=== PATIENT | male | born 1945 | race Caucasian/White ===

== ENCOUNTER 2019-03-08 14:12 | Inpatient (IN) | payer OTHER ==
[~2019-03-08] VITALS: Ht 188 cm; Wt 66.8 kg
[~2019-03-08 14:12] MED LIST: HYDACE5 PO
[2019-03-08] MEDS ORDERED: AMLO5 PO (14:20)
[2019-03-08] MEDS ORDERED: ATOR10 PO (14:20)
[2019-03-08] MEDS ORDERED: STRIVERDI RESPIM4 GM IH (14:21)
[2019-03-08] MEDS ORDERED: ALBU90OI INH (14:22)
[2019-03-08 14:53] LABS: BASOPHILS PERCENT AUTO 1 % (0-2); EOSINOPHILS ABSOLUTE AUTO 0.21 K/mm3 (0.00-0.68); EOSINOPHILS PERCENT AUTO 3 % (0-6); Hematocrit 46.1 % (37.0-53.0); Hemoglobin 15.7 g/dL (13.5-17.5); IMMATURE GRAN ABSOLUTE AUTO 0.02 K/mm3 (0.00-0.10); IMMATURE GRAN PERCENT AUTO 0 % (0-1); LYMPHOCYTES ABSOLUTE AUTO 1.24 K/mm3 (0.84-5.20); LYMPHOCYTES PERCENT AUTO 15 % (21-46); MONOCYTES ABSOLUTE AUTO 0.71 K/mm3 (0.16-1.47); MONOCYTES PERCENT AUTO 9 % (4-13); Mean Corpuscular HGB Conc 34.1 g/dL (31.5-36.5); Mean Corpuscular Volume 91 fL (80-100); Mean Platelet Volume 10.3 fL (9.1-12.4); NEUTROPHILS ABSOLUTE AUTO 5.85 K/mm3 (1.96-9.15); NEUTROPHILS PERCENT AUTO 72 % (41-73); Platelet Count 276 K/mm3 (150-400); RDW Coefficient Variation 12.7 % (11.7-14.2); RDW Standard Deviation 42.5 fL (35.1-46.3); Red Blood Cell Count 5.07 M/mm3 (4.30-5.90); White Blood Cell Count 8.13 K/mm3 (4.00-11.30)
[2019-03-08 15:14] LABS: Alanine Aminotransfer (ALT/SGP 15 U/L (12-78); Albumin/Globulin Ratio 1.2 (0.8-1.8); Alk Phos 73 U/L (50-136); Anion Gap 4 mmol/L (6-16); Aspartate Aminotrans (AST/SGOT 17 U/L (12-37); Bilirubin, Total 0.5 mg/dL (0.1-1.0); Blood Urea Nitrogen 19 mg/dL (8-24); Bun/Creatinine Ratio 13.9 (12.0-20.0); CO2, Blood 31 mmol/L (21-32); Calcium, Blood 9.1 mg/dL (8.5-10.1); Chloride, Blood 105 mmol/L (98-108); Creatinine, Blood 1.37 mg/dL (0.60-1.20); Globulin, Blood 3.4 g/dL (2.2-4.0); Glomerular Filtration Rate 54 (60-); Glucose, Blood 90 mg/dL (70-99); Potassium, Blood 4.7 mmol/L (3.5-5.5); Sodium, Blood 140 mmol/L (136-145); Total Protein, Blood 7.4 g/dL (6.4-8.2); Troponin I <0.015 ng/mL (0.000-0.040)
[2019-03-08 16:56] LABS: PCO2 Arterial 40.2 mmHg (35-45); PO2 Arterial 79.5 mmHg (80-100); pH Blood Arterial 7.42 (7.35-7.45)
--- NOTE | 2019-03-08 17:40 | NUR ---
ASSUMED CARE: PT ARRIVES WITH HYPERTENSION, HR IN LOW 100S, SINUS TACH. DENIES CP BUT STATES HE WAS FEELING DIZZY AFTER BLOOD PRESSURE CHANGED FROM 140S SYSTOLIC TO 170S SYSTOLIC UPON ADMIT. DENIES FURTHER NEEDS OR CONCERNS
--- NOTE | 2019-03-08 19:10 | NUR ---
ASSUME CARE REPORT RECIEVED FROM OFF GOING RN NADIR. MONITOR INTACT SHOWING SINUS RHYTHM/SINUS TACH HEART RATE 80'-100'S DENIES NAUSEA OR DISCOMFORT. LUNG SOUNDS CLEAR RESPIRATIONS REGULAR AND EASY AT REST ABDOMEN SOFT WITH BOWEL SOUNDS FOUR QUADS. VOIDS PEDRO URINE PER URINAL. DENIES DIZZINESS OR UNSTEADYNESS WHEN STANDING. REQUEST "SOMETHING TO EAT" TOLERATES SANDWITH AND ORANGE JUICE WELL. CONTINUE TO MONITOR AND REPORT CHANGE IN PATIENT CONDITION.
--- NOTE | 2019-03-08 19:44 | NUR ---
SHIFT SUMMARY: CALL TO DR OLGUIN DUE TO PT STATING HE DOES NOT HAVE HOME INHALER AVAILABLE BECAUSE HE RAN OUT TWO DAYS AGO. DR ALSO AWARE THAT PT HAS PTSD HISTORY WITH INSOMNIA AND REQUESTING BEDTIME MEDS. REQUESTED FOOD, WHICH RECTANGULAR TANK COOPER PROVIDED. DENIES FURTHER NEEDS OR CONCERNS.
--- NOTE | 2019-03-08 21:00 | NUR ---
REFUSES COLACE REQUEST SLEEPING AID MELITONIN MEDICATED WITH SAME. CONTINUE TO MONITOR
--- NOTE | 2019-03-09 00:36 | NUR ---
AWAKENS EASILY C/O HEADACHE MEDICATED WI TYLENOL 650MG WILL CONTINUE TO MONITOR AND REPORT CHANGE IN PATIENT CONITION
[2019-03-09 02:07] LABS: BASOPHILS ABSOLUTE AUTO 0.01 K/mm3 (0.00-0.23); BASOPHILS PERCENT AUTO 0 % (0-2); EOSINOPHILS ABSOLUTE AUTO 0.01 K/mm3 (0.00-0.68); EOSINOPHILS PERCENT AUTO 0 % (0-6); Hematocrit 43.4 % (37.0-53.0); Hemoglobin 14.8 g/dL (13.5-17.5); IMMATURE GRAN ABSOLUTE AUTO 0.02 K/mm3 (0.00-0.10); IMMATURE GRAN PERCENT AUTO 0 % (0-1); LYMPHOCYTES ABSOLUTE AUTO 0.36 K/mm3 (0.84-5.20); LYMPHOCYTES PERCENT AUTO 7 % (21-46); MONOCYTES ABSOLUTE AUTO 0.04 K/mm3 (0.16-1.47); MONOCYTES PERCENT AUTO 1 % (4-13); Mean Corpuscular HGB 29.8 pg (26.0-34.0); Mean Corpuscular HGB Conc 34.1 g/dL (31.5-36.5); Mean Platelet Volume 10.3 fL (9.1-12.4); NEUTROPHILS PERCENT AUTO 92 % (41-73); Platelet Count 245 K/mm3 (150-400); RDW Coefficient Variation 12.9 % (11.7-14.2); RDW Standard Deviation 41.2 fL (35.1-46.3); Red Blood Cell Count 4.96 M/mm3 (4.30-5.90); White Blood Cell Count 5.54 K/mm3 (4.00-11.30)
[2019-03-09 02:08] LABS: Mean Corpuscular Volume 88 fL (80-100)
[2019-03-09 02:24] LABS: Bun/Creatinine Ratio 18.7 (12.0-20.0); Calcium, Blood 8.9 mg/dL (8.5-10.1); Creatinine, Blood 1.39 mg/dL (0.60-1.20); Potassium, Blood 4.3 mmol/L (3.5-5.5)
--- NOTE | 2019-03-09 06:36 | NUR ---
SHIFT SUMMARY: RESTS QUIETLY WHEN UNDISTURBED AWAKENS EASILY. DENIES DISCOMFORT. LUNG SOUNDS CLEAR UPPERS DECREASED IN THE BASES. RESPIRATIONS REGULAR AND EASY AT REST. DYSPNIC WITH EXERTION. ABDOMEN SOFT WITH AUDIBLE BOWEL SONDS FOUR QUADS. VOIDS PEDRO URINE PER URINAL. PEDAL PULSES PRESENT NO EDEMA NOTED. CONTINUE TO MONITOR AND REPORT CHANGE IN PATIENT CONDITION
--- NOTE | 2019-03-09 08:40 | NUR ---
ASSESSMENT- PT AWAKE, ALERT, COOPERATVE. DENIES ANY PAIN OR DISCOMFORT, BP ELEVAATED-STATES NORMAL FOR HIM. NORVASC GIVEN. BEDSIDE ECHO BEING SET UP. ATE BREAKFAST, VSS. 2 PIV INTACT
--- NOTE | 2019-03-09 10:38 | NUR ---
BP REMAINS ELEVATED, RX WITH HYDRALAZINE. PT DENIES CHEST PAIN, STATES HAS SLIGHT HEADACHE. REFUSES TYLENOL
--- NOTE | 2019-03-09 11:16 | NUR ---
BP IMPROVED 150/68, STATES HEADACHE RESOLVED. DENIES PAIN OR SOB
--- NOTE | 2019-03-09 11:32 | NUR ---
DR OLGUIN AT BEDSIDE, PT DENIES CHEST PAIN BUT STATES DOES HAVE "CONGESTION" SENSATION, STATES NOT REALLY "PAIN" EKG DONE. NTG SL GIVEN WITH RELIEF OF CONGESTION FEELING. PT TALKATIVE, NO DISTRESS NOTED
--- NOTE | 2019-03-09 11:56 | NUR ---
Echocardiogram completed.
--- NOTE | 2019-03-09 14:13 | NUR ---
PT IN BED, ONLY HAD BITE FOR LUNCH. VISITING WITH FRIEND. DR. RED HERE-ASSESSED PT, PLANS FOR STAT DDIMER, POSSIBLE CATH
[2019-03-09 15:21] LABS: D-Dimer, Quantitative 0.39 mg/L FEU (0.00-0.52); International Normalized Ratio 1.02; Prothrombin Time Results 10.8 Sec (9.7-11.5)
--- NOTE | 2019-03-09 15:55 | NUR ---
PT DENIES COMPLAINTS. HEPARIN GTT STARTED 13 UNITS/KG/HR AND BOLUS GIVEN PER ORDERS. VSS
[2019-03-09 16:22] LABS: Free Thyroxine 0.96 ng/dL (0.70-1.60)
[2019-03-09 16:23] LABS: Triiodothyronine, Free 1.85 pg/mL (2.18-3.98)
--- NOTE | 2019-03-09 17:33 | NUR ---
DENIES ANY PAIN, HEPARIN INFUSING, NS AT 125 CC/HR. VSS. SR RATE 80'S. 2 PIV DI. DISCUSSED PLAN OF CARE, CARDIAC CATH, QUESTIONS ANSWERED.
--- NOTE | 2019-03-09 17:55 | NUR ---
REPORT TO [facility] SULFITE STAFF. PT TO LAB IN BED WITH MONITOR
--- NOTE | 2019-03-09 18:10 | NUR ---
Per admit trigger, I met with Mr. Morales to offer information on benefits of advanced care planning. He was not interested but politely took packet. Sister at bedside. They appear to have strong relationship. Advised I would remain available.
--- NOTE | 2019-03-09 20:00 | NUR ---
PT ARRIVES TO ICU 2 FROM VAN OWNER OPERATOR S/P ANGIOGRAM. ACCESS WAS TO RIGHT RADIAL. PT LEFT HAND DOMINENT. TR BAND ON AND INFLATED TO 12 ML. GOOD CMS CHECKS TO RIGHT HAND. REPORT RECEIVED FROM [facility]AN OWNER OPERATOR RN. PT ANXIOUS AND SOMEWHAT RESTLESS IN BED. NEEDS TO BE REMINDED OF RESTRICTIONS POST PROCEDURE. PT VERBALIZES UNDERSTANDING. WILL REVIEW CHART AND PLAN OF CARE FOR THIS PT.
--- NOTE | 2019-03-09 23:41 | NUR ---
DR RED CALLS AND UPDATE ON PT'S STATUS GIVEN. NEW ORDERS RECEIVED. HAVE NEARLY COMPLETED DEFLATION OF TR BAND. HAVE INSTRUCTED PT IN PROCESS. PT COMPLIANT WITH RESTRICTIONS AT THIS TIME. NO COMPLAINTS OF CHEST PAIN OR PRESSURE. WILL CONTINUE TO MONITOR PT.
--- NOTE | 2019-03-10 01:14 | NUR ---
PT'S TR BAND DEFLATED. NO S/S BLEEDING. NO HEMATOMA OR OOZING. PT COMPLIANT WITH RIGHT WRIST RESTRICTIONS. NO COMPLAINTS OF CHEST PAIN OR PRESSURE. WILL CONTINUE TO MONITOR PT
[2019-03-10 04:04] LABS: BASOPHILS ABSOLUTE AUTO 0.02 K/mm3 (0.00-0.23); BASOPHILS PERCENT AUTO 0 % (0-2); EOSINOPHILS ABSOLUTE AUTO 0.02 K/mm3 (0.00-0.68); EOSINOPHILS PERCENT AUTO 0 % (0-6); Hematocrit 42.6 % (37.0-53.0); Hemoglobin 14.4 g/dL (13.5-17.5); IMMATURE GRAN ABSOLUTE AUTO 0.09 K/mm3 (0.00-0.10); IMMATURE GRAN PERCENT AUTO 1 % (0-1); LYMPHOCYTES ABSOLUTE AUTO 0.58 K/mm3 (0.84-5.20); LYMPHOCYTES PERCENT AUTO 3 % (21-46); MONOCYTES ABSOLUTE AUTO 0.37 K/mm3 (0.16-1.47); MONOCYTES PERCENT AUTO 2 % (4-13); Mean Corpuscular HGB 30.3 pg (26.0-34.0); Mean Corpuscular HGB Conc 33.8 g/dL (31.5-36.5); Mean Corpuscular Volume 90 fL (80-100); Mean Platelet Volume 10.5 fL (9.1-12.4); NEUTROPHILS ABSOLUTE AUTO 18.79 K/mm3 (1.96-9.15); NEUTROPHILS PERCENT AUTO 95 % (41-73); Platelet Count 279 K/mm3 (150-400); RDW Coefficient Variation 13.2 % (11.7-14.2); RDW Standard Deviation 43.8 fL (35.1-46.3); Red Blood Cell Count 4.76 M/mm3 (4.30-5.90); White Blood Cell Count 19.87 K/mm3 (4.00-11.30)
[2019-03-10 04:22] LABS: Anion Gap 7 mmol/L (6-16); Blood Urea Nitrogen 31 mg/dL (8-24); Bun/Creatinine Ratio 24.4 (12.0-20.0); CHOL/HDL RATIO 2.3; CO2, Blood 26 mmol/L (21-32); Calcium, Blood 8.7 mg/dL (8.5-10.1); Chloride, Blood 107 mmol/L (98-108); Cholesterol 110 mg/dL (50-200); Creatinine, Blood 1.27 mg/dL (0.60-1.20); Glomerular Filtration Rate 59 (60-); Glucose, Blood 143 mg/dL (70-99); HDL Cholesterol 47 mg/dL (>39); LDL/HDL RATIO 0.9; Low Density Lipoprotein Chol 44 mg/dL (0-110); Potassium, Blood 4.6 mmol/L (3.5-5.5); Sodium, Blood 140 mmol/L (136-145); Triglycerides 95 mg/dL (30-160); Very Low Density Lipoprot Chol 19 mg/dL (6-32)
--- NOTE | 2019-03-10 06:31 | NUR ---
PT HAS HAD NO COMPLAINTS OF CHEST PAIN OR PRESSURE. NO COMPLAINTS OF DYSPNEA THROUGHT THE NIGHT. TR BAND OFF, ARMBOARD IS ON. PT DOES HAVE ONE EPISODE DURING NIGHT WHEREAS HE GOT HIMSELF OUT OF BED WITHOUT ASSIST. WHEN FOUND, PT HAD HIS CORDS TANGLED, AND HE WAS TRYING TO WALK AROUND BED WITHOUT REGARDS TO THE IV LINES. WHEN ADDRESSED BY ANOTHER RN, PT BECOMES ANGRY, AND VERY DEFENSIVE. CHARGE NURSE COMES TO ROOM. PT DE-ESCALATES. PT CURRENTLY RESTING IN BED WITHOUT ISSUES. WILL CONTINUE TO MONITOR PT, AND WILL REPORT OFF TO ONCOMING RN.
--- NOTE | 2019-03-10 07:25 | NUR ---
BEGINNING OF SHIFT Assumed care at 0700. Bedside report recieved from [place] ROBERTSON. Dr Fletcher at bedside. States that pt is okay to go home from cardiology standpoint. Pt states desire to go home because [facility]. Plan to discuss discharge with hospitalist. Pt states he is free of chest pain. Bed in lowest position. Call light in reach. Pt denies need at this time. Pt is PCU status.
--- NOTE | 2019-03-10 07:30 | NUR ---
CALL PLACED TO DR VALVERDE Notified provider that pt okay to go home from cardiology standpoint and that pt has an appointment at the [facility] this afternoon.
--- NOTE | 2019-03-10 09:02 | NUR ---
DR TEJADA IN TO SEE PT States plan for discharge.
--- NOTE | 2019-03-10 09:12 | NUR ---
FILTER WASHER AND PRESSER IN TO SEE PT This RN discussed plan of care with contact center manager Alecia. Pt told this RN that he eats breakfast at [employer] every morning for the last 8 years with his friends. Log Driver states plan to discuss cardiac/heart health diet with patient.
[2019-03-10] MEDS ORDERED: CLOP75 PO (09:52)
[2019-03-10] MEDS ORDERED: ASPI81CH PO (09:54)
[2019-03-10] MEDS ORDERED: ALBU3IS INH (09:55)
[2019-03-10] MEDS ORDERED: METO50 PO (09:56)
[2019-03-10] MEDS ORDERED: PRED20 PO (09:59)
--- NOTE | 2019-03-10 10:41 | NUR ---
DISCHARGE Pt discharge from the unit at 1031. Escorted to door via wheelchair, accompanied by this RN. Stated he was receiving a ride from a taxi and verbalized importance of not driving with regards to right transradial artery access. Discharge education provided. Pt verbalized understanding. Medications faxed to [facility]. Pt states he has an "arthritis appointment" today and states he will arrange follow up appointment with PCP tomorrow.
== END 2019-03-10 10:32 | disposition home or self-care (01) | DRG 281 ==
LOC: ER 14:12 → PCU 17:02 → ICUE 17:02
PROVIDERS: Emergency Medicine; Internal Medicine Cardiovascular Disease; ADMIT Internal Medicine
PROC: 3E02340 Introduction of Influenza Vaccine into Muscle, Percutaneous Approach (ICD-10-PCS; 2019-03-08)
PROC: 4A023N7 Measurement of Cardiac Sampling and Pressure, Left Heart, Percutaneous Approach (ICD-10-PCS; principal; 2019-03-09)
PROC: B2111ZZ Fluoroscopy of Multiple Coronary Arteries using Low Osmolar Contrast (ICD-10-PCS; 2019-03-09)
PROC: B2151ZZ Fluoroscopy of Left Heart using Low Osmolar Contrast (ICD-10-PCS; 2019-03-09)
DX: I25.119 Atherosclerotic heart disease of native coronary artery with unspecified angina pectoris (principal); I21.A1 Myocardial infarction type 2; J44.1 Chronic obstructive pulmonary disease with (acute) exacerbation; E78.5 Hyperlipidemia, unspecified; I12.9 Hypertensive chronic kidney disease with stage 1 through stage 4 chronic kidney disease, or unspecified chronic kidney disease; N18.3 Chronic kidney disease, stage 3 (moderate); L40.50 Arthropathic psoriasis, unspecified; E03.9 Hypothyroidism, unspecified; I27.20 Pulmonary hypertension, unspecified; Z79.899 Other long term (current) drug therapy; Z87.891 Personal history of nicotine dependence; Z23 Encounter for immunization
CPT/HCPCS: 36415; 36600; 71046; 80048; 80053; 80061; 82803; 83690; 83880; 84145; 84439; 84443; 84481; 84484; 85025; 85347; 85379; 85610; 85730; 90686; 93005; 93010; 93306; 93458; 93571; 94640; 96374; 96375; 99152; 99153; 99285-25; A9270; C1769; C1887; C1894; G0008; J0360; J1644; J1650; J2250; J2405; J2930; J3010; J7030; Q9967

== ENCOUNTER 2019-07-17 12:42 | Emergency (ER) | payer OTHER ==
[~2019-07-17] VITALS: Ht 188 cm; Wt 70.3 kg
[~2019-07-17 12:42] MED LIST changes: +ALBU3IS INH; +ALBU90OI INH; +AMLO5 PO; +ASPI81CH PO; +ATOR10 PO; +CLOP75 PO; +METO50 PO; +PRED20 PO; +STRIVERDI RESPIM4 GM IH
== END 2019-07-17 14:22 | disposition home or self-care (01) ==
LOC: ER 12:42
DX: R33.9 Retention of urine, unspecified (principal); Z91.011 Allergy to milk products; Z79.899 Other long term (current) drug therapy; Z79.82 Long term (current) use of aspirin; Z79.52 Long term (current) use of systemic steroids; J44.9 Chronic obstructive pulmonary disease, unspecified; I12.9 Hypertensive chronic kidney disease with stage 1 through stage 4 chronic kidney disease, or unspecified chronic kidney disease; F43.10 Post-traumatic stress disorder, unspecified; N18.3 Chronic kidney disease, stage 3 (moderate); I25.2 Old myocardial infarction; I25.10 Atherosclerotic heart disease of native coronary artery without angina pectoris; E03.9 Hypothyroidism, unspecified; Z87.891 Personal history of nicotine dependence
CPT/HCPCS: 51702; 51798; 99283-25

== ENCOUNTER 2021-07-09 07:31 | Emergency (ER) | payer OTHER ==
[~2021-07-09] VITALS: Ht 188 cm; Wt 77.1 kg
[2021-07-09 08:01] LABS: BASOPHILS ABSOLUTE AUTO 0.12 K/mm3 (0.00-0.23); BASOPHILS PERCENT AUTO 1 % (0-2); EOSINOPHILS ABSOLUTE AUTO 0.12 K/mm3 (0.00-0.68); EOSINOPHILS PERCENT AUTO 1 % (0-6); Hematocrit 49.5 % (37.0-53.0); Hemoglobin 16.3 g/dL (13.5-17.5); IMMATURE GRAN ABSOLUTE AUTO 0.03 K/mm3 (0.00-0.10); IMMATURE GRAN PERCENT AUTO 0 % (0-1); LYMPHOCYTES ABSOLUTE AUTO 1.19 K/mm3 (0.84-5.20); LYMPHOCYTES PERCENT AUTO 11 % (21-46); MONOCYTES ABSOLUTE AUTO 0.75 K/mm3 (0.16-1.47); MONOCYTES PERCENT AUTO 7 % (4-13); Mean Corpuscular HGB Conc 32.9 g/dL (31.5-36.5); Mean Corpuscular Volume 94 fL (80-100); Mean Platelet Volume 10.6 fL (9.1-12.4); NEUTROPHILS ABSOLUTE AUTO 9.07 K/mm3 (1.96-9.15); NEUTROPHILS PERCENT AUTO 80 % (41-73); Platelet Count 380 K/mm3 (150-400); Red Blood Cell Count 5.25 M/mm3 (4.30-5.90); White Blood Cell Count 11.28 K/mm3 (4.00-11.30)
[2021-07-09 08:23] LABS: Albumin, Blood 4.4 g/dL (3.4-5.0); Albumin/Globulin Ratio 1.2 (0.8-1.8); Bilirubin, Total 0.7 mg/dL (0.1-1.0); Bun/Creatinine Ratio 19.9 (12.0-20.0); Calcium, Blood 10.2 mg/dL (8.5-10.1); Creatinine, Blood 1.66 mg/dL (0.60-1.20); Globulin, Blood 3.8 g/dL (2.2-4.0); Potassium, Blood 5.3 mmol/L (3.5-5.5); Total Protein, Blood 8.2 g/dL (6.4-8.2)
[2021-07-09] MEDS ORDERED: HYDR1TAB94 PO (08:41)
== END 2021-07-09 09:13 | disposition home or self-care (01) ==
LOC: ER 07:31
PROVIDERS: Emergency Medicine
DX: M25.50 Pain in unspecified joint (principal); M79.10 Myalgia, unspecified site; I95.9 Hypotension, unspecified; R07.9 Chest pain, unspecified; R00.0 Tachycardia, unspecified; Z91.011 Allergy to milk products; Z79.82 Long term (current) use of aspirin; Z79.899 Other long term (current) drug therapy; J44.9 Chronic obstructive pulmonary disease, unspecified; E78.00 Pure hypercholesterolemia, unspecified; I12.9 Hypertensive chronic kidney disease with stage 1 through stage 4 chronic kidney disease, or unspecified chronic kidney disease; N18.30 Chronic kidney disease, stage 3 unspecified; I25.10 Atherosclerotic heart disease of native coronary artery without angina pectoris; I25.2 Old myocardial infarction; E03.9 Hypothyroidism, unspecified
CPT/HCPCS: 80053; 84484; 85025; J1170; J2405

== ENCOUNTER 2021-08-23 09:14 | Emergency (ER) | payer OTHER ==
[~2021-08-23] VITALS: Ht 188 cm; Wt 56.7 kg
[~2021-08-23 09:14] MED LIST changes: +HYDR1TAB94 PO
[2021-08-23 10:24] LABS: BASOPHILS ABSOLUTE AUTO 0.08 K/mm3 (0.00-0.23); BASOPHILS PERCENT AUTO 1 % (0-2); EOSINOPHILS ABSOLUTE AUTO 0.11 K/mm3 (0.00-0.68); EOSINOPHILS PERCENT AUTO 1 % (0-6); Hematocrit 51.4 % (37.0-53.0); Hemoglobin 17.1 g/dL (13.5-17.5); IMMATURE GRAN ABSOLUTE AUTO 0.04 K/mm3 (0.00-0.10); IMMATURE GRAN PERCENT AUTO 0 % (0-1); LYMPHOCYTES ABSOLUTE AUTO 1.01 K/mm3 (0.84-5.20); LYMPHOCYTES PERCENT AUTO 10 % (21-46); MONOCYTES ABSOLUTE AUTO 0.61 K/mm3 (0.16-1.47); MONOCYTES PERCENT AUTO 6 % (4-13); Mean Corpuscular HGB 31.5 pg (26.0-34.0); Mean Corpuscular HGB Conc 33.3 g/dL (31.5-36.5); Mean Corpuscular Volume 95 fL (80-100); Mean Platelet Volume 11.2 fL (9.1-12.4); NEUTROPHILS ABSOLUTE AUTO 8.48 K/mm3 (1.96-9.15); NEUTROPHILS PERCENT AUTO 82 % (41-73); Platelet Count 318 K/mm3 (150-400); RDW Coefficient Variation 11.7 % (11.7-14.2); RDW Standard Deviation 40.9 fL (35.1-46.3); Red Blood Cell Count 5.43 M/mm3 (4.30-5.90); White Blood Cell Count 10.33 K/mm3 (4.00-11.30)
[2021-08-23 10:34] LABS: Albumin, Blood 4.1 g/dL (3.4-5.0); Albumin/Globulin Ratio 1.2 (0.8-1.8); Bilirubin, Total 0.7 mg/dL (0.1-1.0); Bun/Creatinine Ratio 20.9 (12.0-20.0); Calcium, Blood 9.4 mg/dL (8.5-10.1); Creatinine, Blood 1.29 mg/dL (0.60-1.20); Globulin, Blood 3.3 g/dL (2.2-4.0); Potassium, Blood 4.9 mmol/L (3.5-5.5); Total Protein, Blood 7.4 g/dL (6.4-8.2)
[2021-08-23 11:38] LABS: Influenza A, PCR NEGATIVE (NEGATIVE); Influenza B, PCR NEGATIVE (NEGATIVE); Resp Syncytial Virus, PCR NEGATIVE (NEGATIVE); SARS-Cov-2 (COVID-19) PCR, MMC NEGATIVE (NEGATIVE)
[2021-08-23] MEDS ORDERED: ALBU2.5V5 NEB (12:52)
[2021-08-23] MEDS ORDERED: METPRE4DP PO (12:52)
== END 2021-08-23 13:05 | disposition home or self-care (01) ==
LOC: ER 09:14
PROVIDERS: Emergency Medicine
DX: J44.1 Chronic obstructive pulmonary disease with (acute) exacerbation (principal); Z20.822 Contact with and (suspected) exposure to COVID-19; I25.2 Old myocardial infarction; E03.9 Hypothyroidism, unspecified; I12.9 Hypertensive chronic kidney disease with stage 1 through stage 4 chronic kidney disease, or unspecified chronic kidney disease; N18.30 Chronic kidney disease, stage 3 unspecified; E78.00 Pure hypercholesterolemia, unspecified; Z79.899 Other long term (current) drug therapy
CPT/HCPCS: 0241U; 71046; 80053; 83880; 84484; 85025; 93005; 93010; 94640; 94664; 96374; 96375; 99285-25; J1170; J2405; J2930

== ENCOUNTER 2021-10-11 12:52 | Inpatient (IN) | payer OTHER ==
[~2021-10-11] VITALS: Ht 157.5 cm; Wt 54.4 kg
[~2021-10-11 12:52] MED LIST changes: +ALBU2.5V5 NEB; +METPRE4DP PO
[2021-10-11 13:34] LABS: BASOPHILS ABSOLUTE AUTO 0.06 K/mm3 (0.00-0.23); BASOPHILS PERCENT AUTO 0 % (0-2); EOSINOPHILS PERCENT AUTO 0 % (0-6); Hematocrit 49.4 % (37.0-53.0); Hemoglobin 16.5 g/dL (13.5-17.5); IMMATURE GRAN ABSOLUTE AUTO 0.06 K/mm3 (0.00-0.10); IMMATURE GRAN PERCENT AUTO 0 % (0-1); LYMPHOCYTES ABSOLUTE AUTO 0.37 K/mm3 (0.84-5.20); LYMPHOCYTES PERCENT AUTO 2 % (21-46); MONOCYTES ABSOLUTE AUTO 2.38 K/mm3 (0.16-1.47); MONOCYTES PERCENT AUTO 15 % (4-13); Mean Corpuscular HGB 30.6 pg (26.0-34.0); Mean Corpuscular HGB Conc 33.4 g/dL (31.5-36.5); Mean Corpuscular Volume 92 fL (80-100); Mean Platelet Volume 11.1 fL (9.1-12.4); NEUTROPHILS ABSOLUTE AUTO 13.54 K/mm3 (1.96-9.15); NEUTROPHILS PERCENT AUTO 82 % (41-73); Platelet Count 352 K/mm3 (150-400); RDW Coefficient Variation 12.2 % (11.7-14.2); RDW Standard Deviation 41.3 fL (35.1-46.3); Red Blood Cell Count 5.39 M/mm3 (4.30-5.90); White Blood Cell Count 16.41 K/mm3 (4.00-11.30)
[2021-10-11 14:13] LABS: Influenza A, PCR NEGATIVE (NEGATIVE); Influenza B, PCR NEGATIVE (NEGATIVE); Resp Syncytial Virus, PCR NEGATIVE (NEGATIVE); SARS-Cov-2 (COVID-19) PCR, MMC NEGATIVE (NEGATIVE)
[2021-10-11 15:33] LABS: Albumin, Blood 3.2 g/dL (3.4-5.0); Albumin/Globulin Ratio 0.7 (0.8-1.8); Bilirubin, Total 1.1 mg/dL (0.1-1.0); Bun/Creatinine Ratio 33.6 (12.0-20.0); Calcium, Blood 9.7 mg/dL (8.5-10.1); Creatinine, Blood 1.13 mg/dL (0.60-1.20); Globulin, Blood 4.3 g/dL (2.2-4.0); Potassium, Blood 4.4 mmol/L (3.5-5.5); Total Protein, Blood 7.5 g/dL (6.4-8.2)
[2021-10-12 05:23] LABS: Hematocrit 43.8 % (37.0-53.0); Hemoglobin 14.7 g/dL (13.5-17.5); Mean Corpuscular HGB 31.1 pg (26.0-34.0); Mean Corpuscular HGB Conc 33.6 g/dL (31.5-36.5); Mean Corpuscular Volume 93 fL (80-100); Platelet Count 266 K/mm3 (150-400); Red Blood Cell Count 4.73 M/mm3 (4.30-5.90); White Blood Cell Count 10.87 K/mm3 (4.00-11.30)
[2021-10-12 05:46] LABS: Albumin, Blood 2.5 g/dL (3.4-5.0); Albumin/Globulin Ratio 0.7 (0.8-1.8); Bilirubin, Total 0.7 mg/dL (0.1-1.0); Bun/Creatinine Ratio 33.3 (12.0-20.0); Creatinine, Blood 1.02 mg/dL (0.60-1.20); Globulin, Blood 3.5 g/dL (2.2-4.0); Magnesium, Blood 2.4 mg/dL (1.6-2.4); Potassium, Blood 4.5 mmol/L (3.5-5.5)
--- NOTE | 2021-10-12 07:38 | NUR ---
SHIFT SUMMARY NO ACUTE CHANGES OVERNIGHT. VSS. PT REPORT CHEST PAIN WITH SOB, VITALS RECHECKED. O2 SAT AT 90-91 ON ROOM AIR. 2L NC IN PLACE FOR COMFORT AT SLEEP. PT USE URINAL. AOX4. USE CALL LIGHT APPROPRIATELY. PT ALSO HAVE PRODUCTIVE COUGH. PT SLEPT GOOD OVERNIGHT. SALINE LOCKED. REPORT GIVEN TO DAY SHIFT NURSE.
--- NOTE | 2021-10-12 19:48 | NUR ---
SHIFT SUMMARY; PATIENT COMPLAINS DURING DAY OF ARTHRITIS PAIN. IS KIND ENOUGH TO ORDER ULTRAM 50MG Q8 HOURS PRN MODERATE PAIN FOR THIS PATIENT. PATIENT IS INDEPENDANT IN ROOM. WEARS 2 LITERS NASAL CANNULA FOR SOB. HE IS COOPERATIVE CARE DURING DAY. PATIENT DOES NOT URINATE DURING THE DAY AND ORDERS STRAIGHT CATH FOR THIS PATIENT. PER PATIENT HE STRAIGHT CATHS HIMSELF AT HOME WHEN HE HAS URINARY RETENTION. 500ML ARE EMPTIED FROM HIS BLADDER PEDRO COLORED URINE.
[2021-10-13 06:11] LABS: Albumin, Blood 2.8 g/dL (3.4-5.0); Albumin/Globulin Ratio 0.8 (0.8-1.8); Bilirubin, Total 0.4 mg/dL (0.1-1.0); Bun/Creatinine Ratio 33.1 (12.0-20.0); Calcium, Blood 9.4 mg/dL (8.5-10.1); Creatinine, Blood 1.18 mg/dL (0.60-1.20); Globulin, Blood 3.7 g/dL (2.2-4.0); Potassium, Blood 4.3 mmol/L (3.5-5.5); Total Protein, Blood 6.5 g/dL (6.4-8.2)
--- NOTE | 2021-10-13 07:41 | NUR ---
PATIENT IS A&OX4, PLEASANT AND COOPERATIVE WITH CARE. OVERNIGHT, HE WAS ABLE TO USE THE URINAL INDEPENDENTLY FROM THE BED IF LEFT ON BEDSIDE TABLE. SCATTERED COARSE CRACKLES UPPER LOBES WITH MODERATE NONPRODUCTIVE COUGH. MEDICATED TWICE WITH ULTRAM FOR PAIN IN BACK WITH GOOD RESULT.
--- NOTE | 2021-10-13 18:57 | NUR ---
SHIFT SUMMARY PT A&O X 4. THIS MORNING PT C/O INABILITY TO URINATE. ATTEMPTED TO STRAIGHT CATH PT WITH NO SUCCES. UNABLE TO PASS BEYOND PROSTATE. PLACED A COUDE CATH AND RECEIVED AN ORDER FROM MD TO KEEP F/C FOR RETENTION. PLEASANT & COOPERATIVE WITH ALL CARE TODAY. ONE COMPLAINT OF BACK PAIN TODAY WAS MEDICATED WITH ULTRAM ORDERED PER MD. (SEE EMAR). SITS BOLT UP RIGHT IN BED MOST OF THE TIME BUT WILL OCCASIONALLY LAY BACK IN BED. RESP EVEN & UNLABORED.
[2021-10-14 05:00] LABS: Hematocrit 42.9 % (37.0-53.0); Hemoglobin 14.2 g/dL (13.5-17.5); Mean Corpuscular HGB 30.7 pg (26.0-34.0); Mean Corpuscular HGB Conc 33.1 g/dL (31.5-36.5); Mean Corpuscular Volume 93 fL (80-100); Platelet Count 312 K/mm3 (150-400); RDW Coefficient Variation 12.1 % (11.7-14.2); RDW Standard Deviation 41.4 fL (35.1-46.3); Red Blood Cell Count 4.62 M/mm3 (4.30-5.90); White Blood Cell Count 13.08 K/mm3 (4.00-11.30)
[2021-10-14 05:27] LABS: Bun/Creatinine Ratio 34.9 (12.0-20.0); Creatinine, Blood 1.09 mg/dL (0.60-1.20); Potassium, Blood 4.5 mmol/L (3.5-5.5)
--- NOTE | 2021-10-14 07:20 | NUR ---
PATIENT STILL HAVING COMPLAINTS OF LOWER BACK PAIN. STATES ULTRAM IS NOT QUITE GETTING HIM COMFORTABLE. HOPING TO GET A LITTLE MORE RELIEF TODAY. JACINTO CATHETER DRAINING CLEAR PEDRO/YELLOW URINE WITH SEDIMENT SEEN IN THE CATHETER TUBES. HE WAS QUITE SHAKEN UP WHEN ONE OF THE PATIENTS MISTAKENLY WALKED INTO HIS ROOM, AND EXPRESSED THIS MORNING THAT HE DIDN'T SLEEP VERY WELL.
--- NOTE | 2021-10-14 18:39 | NUR ---
SHIFT SUMMARY PT A&O X 4. VSS. PT REPORTS FEELING MUCH BETTER TODAY. BREATHING APPEARS EASIER. HE HAD 2 VISITORS TODAY. MEDICATED FOR BACK PAIN PER MD ORDERS. (SEE EMAR). HE IS STNDBY ASSIST X 1 FOR BSC. PLAN IS POSSIBLY HOME WITH HH OR [facility].
[2021-10-15 04:36] LABS: BASOPHILS ABSOLUTE AUTO 0.04 K/mm3 (0.00-0.23); BASOPHILS PERCENT AUTO 0 % (0-2); EOSINOPHILS PERCENT AUTO 0 % (0-6); Hematocrit 47.6 % (37.0-53.0); Hemoglobin 15.8 g/dL (13.5-17.5); IMMATURE GRAN ABSOLUTE AUTO 0.15 K/mm3 (0.00-0.10); IMMATURE GRAN PERCENT AUTO 1 % (0-1); LYMPHOCYTES PERCENT AUTO 5 % (21-46); MONOCYTES ABSOLUTE AUTO 0.98 K/mm3 (0.16-1.47); MONOCYTES PERCENT AUTO 8 % (4-13); Mean Corpuscular HGB 30.9 pg (26.0-34.0); Mean Corpuscular HGB Conc 33.2 g/dL (31.5-36.5); Mean Corpuscular Volume 93 fL (80-100); Mean Platelet Volume 9.8 fL (9.1-12.4); NEUTROPHILS ABSOLUTE AUTO 9.98 K/mm3 (1.96-9.15); NEUTROPHILS PERCENT AUTO 85 % (41-73); Platelet Count 304 K/mm3 (150-400); RDW Coefficient Variation 11.7 % (11.7-14.2); RDW Standard Deviation 40.6 fL (35.1-46.3); Red Blood Cell Count 5.12 M/mm3 (4.30-5.90); White Blood Cell Count 11.75 K/mm3 (4.00-11.30)
[2021-10-15 05:08] LABS: Bun/Creatinine Ratio 34.9 (12.0-20.0); Calcium, Blood 9.2 mg/dL (8.5-10.1); Creatinine, Blood 0.98 mg/dL (0.60-1.20); Potassium, Blood 4.9 mmol/L (3.5-5.5)
--- NOTE | 2021-10-15 05:47 | NUR ---
SHIFT SUMMARY NOC: PT VERY PLEASANT AND TALKATIVE. PT HAD BACK PAIN THIS MORNING AND WAS GIVEN PRN TRAMADOL. JACINTO IN PLACE, URINE YELLOW CLEAR. NO ADVERSE EVENTS.
--- NOTE | 2021-10-15 17:00 | NUR ---
SHIFT SUMMARY PT A&O X4 AND IN PLEASENT MOOD T/O SHIFT. WORKED W/ PHYSICAL AND OCCUPATIONAL THERAPY. JACINTO DRAINING TO GRAVITY. PAIN MEDICATED PER EMAR. CALL LIGHT W/IN REACH. VSS. 2L NC. PLAN TO D/C TOMORROW TO HOME W/ HOME HEALTH. IN TO SEE PT DURING VISITING HOURS.
[2021-10-16 05:32] LABS: Hematocrit 44.7 % (37.0-53.0); Mean Corpuscular HGB 30.4 pg (26.0-34.0); Mean Corpuscular HGB Conc 33.6 g/dL (31.5-36.5); Mean Corpuscular Volume 91 fL (80-100); Mean Platelet Volume 9.7 fL (9.1-12.4); Platelet Count 327 K/mm3 (150-400); RDW Coefficient Variation 11.5 % (11.7-14.2); RDW Standard Deviation 38.2 fL (35.1-46.3); Red Blood Cell Count 4.94 M/mm3 (4.30-5.90); White Blood Cell Count 13.16 K/mm3 (4.00-11.30)
[2021-10-16 05:44] LABS: Bun/Creatinine Ratio 35.4 (12.0-20.0); Calcium, Blood 8.6 mg/dL (8.5-10.1); Creatinine, Blood 0.88 mg/dL (0.60-1.20); Potassium, Blood 4.6 mmol/L (3.5-5.5)
--- NOTE | 2021-10-16 06:38 | NUR ---
SHIFT SUMMARY NOC: PT SLEPT MOST OF NIGHT. JACINTO IN PLACE. PT HAS CHRONIC PAIN TO BACK, PRN TRAMADOL GIVEN. NO ADVERSE EVENTS.
--- NOTE | 2021-10-16 13:18 | NUR ---
HOME 02 EVAL BY RN- RESTING 02 OF 94% ON ROOM AIR, PT AMBULATED IN ROOM SATS 91-95% ON ROOM AIR.
[2021-10-16] MEDS ORDERED: CLOP75 PO (14:23)
[2021-10-16] MEDS ORDERED: ATOR10 PO (14:23)
[2021-10-16] MEDS ORDERED: GUAI600T33 PO (14:24)
[2021-10-16] MEDS ORDERED: Prednisone20 MG PO (14:25)
[2021-10-16] MEDS ORDERED: TAMS.4ER PO (14:26)
--- NOTE | 2021-10-16 14:39 | NUR ---
DISCHARGE PT A&O X4 @ TIME OF D/C. PT PROVIDED W/ WRITTEN AND VERBAL DIRECTION, PT VERBALIZED UNDERSTANDING. JACINTO D/AFIA THIS SHIFT PER DR. MARIANO. IV DC'ED. TOLERATING PO INTAKE. NO HOME O2 NEED @ THIS TIME PER RN ANNAMARIE YANCEY. VSS. FRIEND PROVIDING TRANSPORT. HIGHWAY MAINTENANCE WORKER ESCORTED PT TO [place] VIA WC, BELONGINGS IN TOW.
== END 2021-10-16 14:42 | disposition home health service (06) | DRG 871 ==
LOC: ER 12:52 → MEDS 15:14
PROVIDERS: Emergency Medicine; Family Medicine; Nurse Practitioner Acute Care; ADMIT Internal Medicine
DX: A41.9 Sepsis, unspecified organism (principal); J18.9 Pneumonia, unspecified organism; J96.01 Acute respiratory failure with hypoxia; E43 Unspecified severe protein-calorie malnutrition; E87.0 Hyperosmolality and hypernatremia; J44.0 Chronic obstructive pulmonary disease with (acute) lower respiratory infection; J44.1 Chronic obstructive pulmonary disease with (acute) exacerbation; R64 Cachexia; Z20.822 Contact with and (suspected) exposure to COVID-19; R65.20 Severe sepsis without septic shock; F17.210 Nicotine dependence, cigarettes, uncomplicated; I16.0 Hypertensive urgency; I10 Essential (primary) hypertension; R33.9 Retention of urine, unspecified; I25.10 Atherosclerotic heart disease of native coronary artery without angina pectoris; N18.30 Chronic kidney disease, stage 3 unspecified; R91.1 Solitary pulmonary nodule; Z98.49 Cataract extraction status, unspecified eye; Z91.011 Allergy to milk products; Z68.21 Body mass index [BMI] 21.0-21.9, adult
CPT/HCPCS: 0241U; 36415; 71045; 80048; 80053; 83605; 83735; 84145; 84484; 85025; 85027; 87040; 93005; 93010; 94640; 94664; 94760; 96365; 96375; 97110; 97116; 97162; 99285-25; A9270; J0456; J0696; J1650; J2920; J7030; J7050; J7512